=== PATIENT | female | born 1990 | race African-American/Black ===

== ENCOUNTER 2017-11-08 17:25 | Emergency (ER) | payer SELFPAY ==
[~2017-11-08 17:25] MED LIST: AMOX500T PO; BENZ100 PO; ZOFR4TAB3 SL
[2017-11-08 17:28] VITALS: BP 121/70; PULSE 90; RESP 20; TEMP 99.3; O2SAT 98
--- NOTE | 2017-11-08 17:53 | PD ---
HPI Chief Complaint: Oral / Dental Pain or Problem Time Seen by Provider: 17:36 Travel History International Travel<30 days: No Contact w/Intl Traveler<30days: No Traveled to known affect area: No History of Present Illness HPI 27 year-old male presents to the emergency room for evaluation of painful oral lesions. States they started about one week ago. Pain is localized to the roof of the mouth near the front teeth. Patient denies any trauma or burn to the mouth. She has been applying Orajel with moderate relief in symptoms. States symptoms are mostly improved when she applies pressure to the roof of her mouth with her tongue. States Orajel stopped working. She made an appointment with her dentist in a few days but the pain has been worsening so she came in at the recommendation of her friends. Friends told her that she may have an abscess. No chronic medical conditions or daily medications. History Social History Alcohol Use: No Tobacco Use: No Allergies-Medications (Allergen,Severity, Reaction): Coded Allergies: No Known Allergies (Verified , 10/10/14) Reported Meds & Prescriptions Reported Meds & Active Scripts Active Zofran ODT (Ondansetron HCl) 4 Mg Tab 4 Mg SL Q6H PRN FOR NAUSEA/VOMITING Tessalon Perles (Benzonatate) 100 Mg Cap 100 Mg PO TID PRN Amoxil (Amoxicillin) 500 Mg Cap 1 Tab PO TID 10 Days Review of Systems Except as stated in HPI: all other systems reviewed are Neg Physical Exam Narrative GENERAL: Well-nourished, well-developed female in no acute distress. Afebrile. Ambulatory. SKIN: Focused skin assessment warm/dry. HEAD: Normocephalic. EYES: No scleral icterus. No injection or drainage. NECK: Supple, trachea midline. No JVD or lymphadenopathy. DENTAL: No loose or chipped teeth. No malocclusion. There are several raised, circular, herpetic lesions on the roof of the mouth near the front teeth. No erythema. No drainage. Data Data Last Documented VS Vital Signs Date Time Temp Pulse Resp B/P (MAP) Pulse Ox O2 Delivery O2 Flow Rate FiO2 11/08/17 17:28 99.3 90 20 121/70 (87) 98 Room Air MDM Medical Screen Exam Complete: Yes Emergency Medical Condition: No Differential Diagnosis Mouth lesion Narrative Course 27-year-old female presents to the emergency room for evaluation of painful mouth lesions that started 1 week ago and have been worsening. She will appointment with her dentist next week but her friends recommended she come in today because of possible abscess. Physical exam reveals several raised, circular, herpetic lesions on the roof of the mouth near the front teeth. No erythema. No drainage. Could be aphthous ulcers, normal variant, or viral syndrome. No evidence of bacterial infection. No abscess. Patient was reassured and told to continue [id number] Orajel and follow up with her dentist as needed. She understands. There are no urgent or emergent medical conditions at this time. A medical screening exam was performed: At the time of evaluation the presenting medical condition was determined not to be of an emergent nature. The patient was given the option of receiving additional care, but declined. Patient was given options for additional community resources from which to obtain care. The Patient Has Been advised to seek medical attention for their presenting complaint. The patient has been advised to return to the ER at any time if an emergent condition develops. Primary Impression: Encounter for medical screening examination Disposition: 01 DISCHARGE HOME Condition: Stable Bree Patel Nov 08, 2017 17:53
== END 2017-11-08 17:53 | disposition left against medical advice (07) ==
LOC: NEPK 17:25
DX: K13.70 Unspecified lesions of oral mucosa (principal); Z79.2 Long term (current) use of antibiotics; Z79.899 Other long term (current) drug therapy
CPT/HCPCS: 99281